=== PATIENT | male | born 1940 | race Caucasian/White ===

== ENCOUNTER 2022-06-18 12:27 | Outpatient (CLI) | payer MEDICARE ==
[2022-06-18 13:40] LABS: Hemoglobin 14.2 g/dL (13.5-17.5); Mean Corpuscular HGB CONC 34.5 g/dL (32.0-36.0); Mean Corpuscular Hemoglobin 31.4 pg (27.0-33.0); Mean Corpuscular Volume 91.2 fl (81.2-95.1); Platelet Count 229 10x3/uL (150-450); RBC Distribution Width 13.3 % (11.5-14.5); Red Blood Cell (RBC) Count 4.52 10x6/uL (4.32-5.72); White Blood Cell (WBC) Count 11.7 10x3/uL (3.5-10.5)
[2022-06-18 14:16] LABS: Anion Gap 12 mmol/L (10-20); BUN (Urea Nitrogen) 17 mg/dL (8.4-25.7); Calc. Creatinine Clearance 0 mL/min (70-130); Calcium 9.9 mg/dL (7.8-10.44); Carbon Dioxide 26 mmol/L (23-31); Chloride 103 mmol/L (98-107); Estimated GFR 37; Glucose 160 mg/dL (83-110); Potassium 4.3 mmol/L (3.5-5.1); Sodium 137 mmol/L (136-145)
== END 2022-06-18 12:28 | disposition home or self-care (01) ==
LOC: LABBT 12:27
PROVIDERS: ATTEND Neurological Surgery
DX: Z01.818 Encounter for other preprocedural examination (principal); M43.16 Spondylolisthesis, lumbar region; Z20.822 Contact with and (suspected) exposure to COVID-19
CPT/HCPCS: 80048; 85027; 87811; 93005; 93010

== ENCOUNTER 2022-06-23 05:35 | Inpatient (IN) | payer MEDICARE ==
[2022-06-19 14:50] VITALS: BMI 24.6
[2022-06-23] MEDS ORDERED: fentaNYL Citrate/PF 100 MCG/2 ML SYRINGE ONE ×2 (06:53→08:25)
[2022-06-23] MEDS ORDERED: CEFAZOLIN 2 GM VIAL ONE (07:13)
[2022-06-23] MEDS ORDERED: Sodium Chloride 0.9% 100 ML ONE (07:13)
[2022-06-23] MEDS ORDERED: Glycopyrrolate 0.2 MG/ML 5 ML SYRINGE ONE (07:33)
[2022-06-23] MEDS ORDERED: Ondansetron PF 4 MG/2 ML Vial ONE ×2 (07:33→12:01)
[2022-06-23] MEDS ORDERED: Lidocaine 1% MPF 2 ML VIAL ONE (07:33)
[2022-06-23] MEDS ORDERED: NEOSTIGMINE 3 MG/3 ML SYR 3 MG/3 ML SYRINGE ONE (07:33)
[2022-06-23] MEDS ORDERED: Dexamethasone 20 MG/5 ML VIAL ONE (07:33)
[2022-06-23] MEDS ORDERED: Rocuronium Bromide 10 MG/ML (10ML VIAL) ONE (07:33)
[2022-06-23] MEDS ORDERED: Tamsulosin HCl 0.4 MG CAP ONE (09:19)
[2022-06-23] MEDS ORDERED: Fentanyl 100 MCG/2 ML VIAL ONE (09:36)
[2022-06-23] MEDS ORDERED: Acetaminophen/Codeine 30-300mg Tablet ONE (10:55)
[2022-06-23] MEDS ORDERED: Ondansetron ODT 4 MG TAB ONE (11:57)
[2022-06-23] MEDS ORDERED: Promethazine HCl 25 MG/ML VIAL ONE (12:01)
[2022-06-23] MEDS ORDERED: Morphine 2 MG/ML VIAL ONE (12:15)
[2022-06-23] MEDS ORDERED: Morphine 2 MG/ML VIAL SLOW IVP PRN (14:21)
[2022-06-23] MEDS ORDERED: Cyclobenzaprine 10 MG TAB PO PRN (14:21)
[2022-06-23] MEDS ORDERED: traMADol HCl 50 MG TAB PO PRN (14:21)
[2022-06-23] MEDS ORDERED: diphenhydrAMINE 25 MG CAP PO PRN (14:21)
[2022-06-23] MEDS ORDERED: Ondansetron PF 4 MG/2 ML Vial IVP PRN (14:21)
[2022-06-23] MEDS ORDERED: Milk Of Magnesia 30 ML UDCUP PO PRN (14:21)
[2022-06-23] MEDS ORDERED: Promethazine 25 MG TAB PO PRN (14:21)
[2022-06-23] MEDS ORDERED: Acetaminophen 325 MG TAB PO PRN (14:21)
[2022-06-23] MEDS ORDERED: Mag-Al 1200 mg/1200 mg/30 ML UDCUP PO PRN (14:21)
[2022-06-23] MEDS ORDERED: Acetaminophen/Codeine 30-300mg Tablet PO PRN ×2 (14:21)
[2022-06-23] MEDS ORDERED: traZODone HCl 50 MG TAB PO PRN (14:23)
[2022-06-23] MEDS: Sodium Chloride 0.9% 1,000 ML IV SCH ×2 (16:51→22:57)
[2022-06-23] MEDS: CEFAZOLIN 2 GM in Sodium Chloride 0.9% 100 ML IVPB SCH ×2 (16:54→22:58)
[2022-06-24 05:54] LABS: Anion Gap 13 mmol/L (10-20); BUN (Urea Nitrogen) 25 mg/dL (8.4-25.7); Calc. Creatinine Clearance 36 mL/min (70-130); Calcium 8.4 mg/dL (7.8-10.44); Carbon Dioxide 24 mmol/L (23-31); Chloride 104 mmol/L (98-107); Estimated GFR 41; Glucose 116 mg/dL (83-110); Potassium 4.2 mmol/L (3.5-5.1); Sodium 137 mmol/L (136-145)
[2022-06-24] MEDS ORDERED: Tamsulosin HCl 0.4 MG CAP PO SCH (06:00)
[2022-06-24 06:19] LABS: Band 1 % (5-11); Hemoglobin 12.1 g/dL (14.0-18.0); Hypochromia SLIGHT = 6-15 cells (100X) (0-5/hpf); Lymphocytes 16 % (21-51); MDiff Complete? YES; Mean Corpuscular HGB CONC 33.3 g/dL (32.0-36.0); Mean Corpuscular Hemoglobin 31.7 pg (27.0-31.0); Mean Corpuscular Volume 95.2 fL (78.0-98.0); Monocytes 4 % (0-10); Neutrophil 79 % (42-75); Platelet Count 179 thou/uL (130-400); Platelet Morphology Comment Appears Adequate; RBC Distribution Width 12.3 % (11.5-14.5); White Blood Cell (WBC) Count 20.7 thou/uL (4.8-10.8)
[2022-06-24 07:58] VITALS: BP 147/72
[2022-06-24 08:32] VITALS: TEMP 98.1
[2022-06-24] MEDS ORDERED: Acetaminophen/Codeine 30-300mg Tablet PO PRN ×2 (08:57)
[2022-06-24] MEDS ORDERED: Amlodipine 5 MG TAB PO SCH (09:00)
[2022-06-24] MEDS ORDERED: Cephalexin 250 MG CAP PO SCH ×2 (12:00→20:00)
== END 2022-06-24 13:13 | disposition home or self-care (01) | DRG 460 ==
LOC: SDC 05:35 → MSONC 13:59 → OBSVTOIN 06-24 11:23
PROVIDERS: ADMIT Physician Assistant; ATTEND Neurological Surgery
PROC: 0SG3071 Fusion of Lumbosacral Joint with Autologous Tissue Substitute, Posterior Approach, Posterior Column, Open Approach (ICD-10-PCS; principal; 2022-06-24)
PROC: 01NB0ZZ Release Lumbar Nerve, Open Approach (ICD-10-PCS; 2022-06-24)
PROC: 01NR0ZZ Release Sacral Nerve, Open Approach (ICD-10-PCS; 2022-06-24)
DX: M43.17 Spondylolisthesis, lumbosacral region (principal); I25.810 Atherosclerosis of coronary artery bypass graft(s) without angina pectoris; M51.37 Other intervertebral disc degeneration, lumbosacral region; K21.9 Gastro-esophageal reflux disease without esophagitis; M48.07 Spinal stenosis, lumbosacral region; M54.17 Radiculopathy, lumbosacral region; E78.5 Hyperlipidemia, unspecified; N40.0 Benign prostatic hyperplasia without lower urinary tract symptoms; I12.9 Hypertensive chronic kidney disease with stage 1 through stage 4 chronic kidney disease, or unspecified chronic kidney disease; F17.210 Nicotine dependence, cigarettes, uncomplicated; N18.31 Chronic kidney disease, stage 3a; Z79.899 Other long term (current) drug therapy; Z95.1 Presence of aortocoronary bypass graft
CPT/HCPCS: 36415; 51702; 51798; 76000; 80048; 85025; 96374; 96376; C1713; C1768; C1776; G0378; J0690; J1100; J2270; J2405; J2550; J3010; J3370; J3490; J7050; Q0162

== ENCOUNTER 2022-07-15 12:23 | Outpatient (CLI) | payer MEDICARE | END 2022-07-15 12:24 | disposition home or self-care (01) | LOC: TBSIIMAG 12:23 | PROVIDERS: ATTEND Neurological Surgery | DX: M43.16 Spondylolisthesis, lumbar region (principal); M47.816 Spondylosis without myelopathy or radiculopathy, lumbar region; M43.9 Deforming dorsopathy, unspecified; Z98.890 Other specified postprocedural states | CPT/HCPCS: 72100 ==